=== PATIENT | female | born 1995 | race Native Hawaiian/Other Pacific Islander ===

== ENCOUNTER 2018-02-08 19:49 | Emergency (ER) | payer OTHER ==
[2018-02-08 20:03] VITALS: BP 123/78; PULSE 72; RESP 16; TEMP 98.5; O2SAT 98
--- NOTE | 2018-02-08 20:40 | ED PDOC ---
Upper Extremity Pain/Injury Time Seen by Provider: 02/08/18 20:06 Chief Complaint (Nursing): Finger,Hand,&Wrist Chief Complaint (Provider): Hand Injury History Per: Patient History/Exam Limitations: no limitations Onset/Duration Of Symptoms: Other (x todau) Additional Complaint(s): Patient is 22 year old female with sustained laceration to the right 3rd digit when opening a can, (-) numbness, (-) decreased range of motion, (-) other injuries. As per patient, tetanus shot is up-to-date. PMD: [facility] Past Medical History Reviewed: Historical Data, Nursing Documentation, Vital Signs Vital Signs: Last Vital Signs Temp 98.5 F 02/08/18 20:00 Pulse 72 02/08/18 20:00 Resp 16 02/08/18 20:00 BP 123/78 02/08/18 20:00 Pulse Ox 98 02/08/18 20:00 - Medical History PMH: No Chronic Diseases - Surgical History Surgical History: No Surg Hx - Family History Family History: States: Unknown Family Hx - Allergies Allergies/Adverse Reactions: Allergies Allergy/AdvReac Type Severity Reaction Status Date / Time No Known Allergies Allergy Verified 02/08/18 20:00 Review of Systems ROS Statement: Except As Marked, All Systems Reviewed And Found Negative Musculoskeletal: Positive for: Other ((+): right 3rd digit laceration, (-): decreased range of motion) Physical Exam - Reviewed Nursing Documentation Reviewed: Yes Vital Signs Reviewed: Yes - Physical Exam Comments: GENERAL APPEARANCE: Patient is awake, alert, oriented x 3, in no acute distress. SKIN: Warm, dry; (-) cyanosis. RIGHT HAND: (+) 1.5 cm laceration to the volar aspect of the right 3rd digit PIP , (+) FROM, (+) distal sensation and capillary refill is intact and normal. - ECG O2 Sat by Pulse Oximetry: 98 (RA) Pulse Ox Interpretation: Normal Medical Decision Making Medical Decision Making: Time: 20:18 Plan: - Dermabond The wound is volar aspect of the PIP of the right third digit. The wound was copiously irrigated with water. The wound was prepped and draped in the normal sterile fashion. The wound was explored for foreign bodies and none were found. The edges were reapproximated using dermabond. Bleeding was well controlled and the patient tolerated the procedure well. Clean dressing applied by PONCHO. Advised to follow up with primary care physician in 2 days without fail. Return to the emergency room at any time for any new or worsening symptoms. Patient states she fully agrees with and understands discharge instructions. States that she agrees with the plan and disposition. Verbalized and repeated discharge instructions and plan. I have given the patient opportunity to ask any additional questions. Scribe Attestation: Documented by Musa Sierra, acting as a scribe for Robyn Montiel PA-C. Provider Scribe Attestation: All medical record entries made by the Scribe were at my direction and personally dictated by me. I have reviewed the chart and agree that the record accurately reflects my personal performance of the history, physical exam, medical decision making, and the department course for this patient. I have also personally directed, reviewed, and agree with the discharge instructions and disposition. Procedures - Time-Out Type of Procedure: Laceration Repair Correct Patient: Yes Correct Procedure: Yes Disposition - Clinical Impression Clinical Impression: Finger laceration - Patient ED Disposition Is Patient to be Admitted: No Counseled Patient/Family Regarding: Diagnosis, Need For Followup - Disposition Referrals: [facility] [Outside] Laura Tucker MD [Staff Provider] - Disposition: Routine/Home Disposition Time: 20:30 Condition: STABLE Additional Instructions: Thank you for letting us take care of you today. You were treated for finger laceration. The emergency medical care you received today was directed at your acute symptoms. Return to the Emergency Department if your symptoms worsen, do not improve, or if you have any other problems. Please contact your doctor in 2 days for re-evaluation and follow up. Bring any paperwork you were given at discharge with you along with any medications you are taking to your follow up visit. Our treatment cannot replace ongoing medical care by a primary care provider (PCP) outside of the emergency department. Thank you for allowing the [facility] team to be part of your care today. Instructions: Laceration Repair With Glue (DC) Forms: [employer] (Hungarian), [facility] ED School/Work Excuse - PA / MEMORY CARE PROGRAM RESIDENT / Resident Statement MD/DO has reviewed & agrees with the documentation as recorded.
== END 2018-02-08 20:59 | disposition home or self-care (01) ==
LOC: H.ER 19:49
DX: S61.212A Laceration without foreign body of right middle finger without damage to nail, initial encounter (principal); W26.8XXA Contact with other sharp object(s), not elsewhere classified, initial encounter; Y92.89 Other specified places as the place of occurrence of the external cause